=== PATIENT | female | born 1975 | race African-American/Black ===

== ENCOUNTER 2017-05-19 15:45 | Emergency (ER) | payer OTHER ==
[~2017-05-19] VITALS: Ht 180.3 cm; Wt 81.7 kg
[~2017-05-19 15:45] MED LIST: AMOXICILLIN 50500 M1 PO; ANTIVERT25 MG PO; APAP/CODEINE ELI5 M1 OR; NAPROSYN500 MG PO; NOHOMEMEDICATIONS; ROBAXIN500 MG PO; ZOFRAN ODT4 MG DISSOLVE
[2017-05-19 16:27] LABS: ABSOLUTE NEUTROPHILS 2.5 thou/uL (1.4-8.2); BASOPHILS 1.1 % (0.0-2.0); EOSINOPHILS 1.8 % (0.0-3.0); HEMATOCRIT 38.7 % (37.0-47.0); HEMOGLOBIN 13.1 gm/dL (12.0-15.0); LYMPHOCYTES 32.2 % (24.0-44.0); MCH 32.1 pg (26.0-34.0); MCHC 33.8 g/dL (28.0-37.0); MCV 94.8 fL (80.0-100.0); MONOCYTES 10.8 % (1.0-8.0); PLATELET COUNT 211 thou/uL (150-400); POLYS 54.1 % (36.0-66.0); RBC 4.08 mil/uL (4.20-5.00); RDW 13.8 % (10.5-14.5); WBC 4.7 thou/uL (4.0-11.0)
[2017-05-19 16:32] LABS: MANUAL DIFF NO
[2017-05-19 16:40] LABS: PROTIME 9.3 Seconds (9.3-11.4)
[2017-05-19 16:42] LABS: CALCIUM 9.1 mg/dL (8.5-10.1); POTASSIUM 3.8 mmol/L (3.5-5.1)
[2017-05-19 16:47] LABS: ALBUMIN 3.5 g/dL (3.4-5.0); MAGNESIUM 1.8 mg/dL (1.8-2.4); TOTAL BILIRUBIN 0.3 mg/dL (<0.1-1.0); TOTAL PROTEIN 6.9 g/dL (6.4-8.2)
[2017-05-19 17:13] LABS: URINE BILIRUBIN NEGATIVE (Negative); URINE BLOOD 2+ (Negative); URINE COLOR YELLOW; URINE GLUCOSE-RANDOM* NEGATIVE (Negative); URINE KETONES TRACE (Negative); URINE NITRITE POSITIVE (Negative); URINE PROTEIN (DIPSTICK) TRACE (Negative); URINE SPECIFIC GRAVITY >= 1.030 (1.003-1.035); URINE UROBILINOGEN 0.2 E.U./dl (0.2-1.0)
[2017-05-19 17:21] LABS: AMP/METHAMP Negative (Negative); BARBITURATES Negative (Negative); BENZODIAZEPINES Negative (Negative); COCAINE Negative (Negative); METHADONE Negative (Negative); OPIATES Negative (Negative); PCP Negative (Negative); THC POSITIVE (Negative)
[2017-05-19 17:27] LABS: CASTS None Seen /LPF (None Seen); CRYSTALS None Seen /LPF (None Seen); SQUAMOUS 4-10 Moderate /LPF (0-3); URINE RBC 0-2 Rare /HPF (0-2); URINE WBC None Seen /HPF (0-5)
[2017-05-19] MEDS ORDERED: NORCO 5-325 TA1 EACH PO (17:52)
[2017-05-19] MEDS ORDERED: KEFLEX500 MG PO (17:55)
[2017-05-19] MEDS ORDERED: CYCLOBENZAPRINE5 MG PO (17:55)
[2017-05-19 18:12] VITALS: BP 134/86
== END 2017-05-19 18:13 | disposition home or self-care (01) ==
LOC: ER 15:45
PROVIDERS: Physician Assistant
DX: M54.12 Radiculopathy, cervical region (principal); R20.2 Paresthesia of skin; F17.210 Nicotine dependence, cigarettes, uncomplicated; F10.99 Alcohol use, unspecified with unspecified alcohol-induced disorder; F12.10 Cannabis abuse, uncomplicated

== ENCOUNTER 2018-02-06 23:52 | Emergency (ER) | payer OTHER ==
[~2018-02-06] VITALS: Ht 180.3 cm; Wt 83.9 kg
[~2018-02-06 23:52] MED LIST changes: +CYCLOBENZAPRINE5 MG PO; +KEFLEX500 MG PO; +NORCO 5-325 TA1 EACH PO
[2018-02-07] MEDS ORDERED: MOBIC15 MG PO (01:45)
[2018-02-07] MEDS ORDERED: LIDOCAINE1 EACH TRANSDERM (01:45)
[2018-02-07 02:19] VITALS: BP 111/75
== END 2018-02-07 02:20 | disposition home or self-care (01) ==
LOC: ER 23:52
DX: R07.81 Pleurodynia (principal); R07.9 Chest pain, unspecified; F17.210 Nicotine dependence, cigarettes, uncomplicated